=== PATIENT | male | born 1960 | race American Indian/Alaskan Native ===

== ENCOUNTER 2021-05-03 17:02 | Emergency (ER) | payer MEDICARE ==
[2021-05-03] MEDS ORDERED: oxyCODONE /ACETAMINOPHEN 5-325MG TAB PO ONE (19:04)
[2021-05-03] MEDS ORDERED: IBUPROFEN 800 MG TAB PO STA (19:08)
--- NOTE | 2021-05-03 19:08 | Emergency Department Report ---
ED General Adult HPI - General Chief complaint: Extremity Injury, Lower Stated complaint: RT ANKLE INJURY Time Seen by Provider: 05/03/21 18:38 Source: patient Mode of arrival: Ambulatory Limitations: No Limitations - History of Present Illness Initial comments: 60-year-old -Irish male patient presents with complaints of right ankle pain and swelling x3 days. Patient states he stepped into a hole and twisted his ankle. He rates his pain as a 9/10 in severity. Patient states he has difficulty walking on the foot and ankle due to the pain. He denies any loss of sensation. Past medical history includes hypertension - Related Data Previous Rx's Medication Instructions Recorded Last Taken Type Acetaminophen/Codeine [Tylenol 1 tab PO Q6H PRN #15 tab 05/03/21 Unknown Rx /Codeine # 3 tab] Naproxen [Naprosyn TAB] 500 mg PO BID PRN #20 tablet 05/03/21 Unknown Rx Allergies Allergy/AdvReac Type Severity Reaction Status Date / Time No Known Allergies Allergy Verified 05/03/21 17:51 ED Review of Systems ROS: Stated complaint: RT ANKLE INJURY Other details as noted in HPI Constitutional: denies: chills, fever, malaise Musculoskeletal: joint swelling, arthralgia Neurological: abnormal gait. denies: numbness, paresthesias Hematological/Lymphatic: denies: easy bleeding ED Past Medical Hx - Past Medical History Hx Hypertension: Yes - Medications Home Medications: Home Medications Medication Instructions Recorded Confirmed Last Taken Type Acetaminophen/Codeine [Tylenol 1 tab PO Q6H PRN #15 tab 05/03/21 Unknown Rx /Codeine # 3 tab] Naproxen [Naprosyn TAB] 500 mg PO BID PRN #20 tablet 05/03/21 Unknown Rx ED Physical Exam - General Limitations: No Limitations ED Course Vital Signs 05/03/21 05/03/21 05/03/21 17:52 17:53 19:15 Temperature 97.9 F Pulse Rate 89 Respiratory 18 14 Rate Blood Pressure 180/113 05/03/21 19:16 Temperature Pulse Rate Respiratory 16 Rate Blood Pressure ED Medical Decision Making - Radiology Data Radiology results: report reviewed XR ankle 3+V RT INDICATION: fall. Right ankle pain after stepping in a hole several days ago. COMPARISON: No relevant prior imaging study available. FINDINGS: There is a minimally displaced oblique distal fibular fracture just above the level of the ankle mortise. No additional fractures are seen. There is diffuse soft tissue swelling about the ankle, greatest laterally. On the lateral view, there is a linear metallic density projecting over the plantar soft tissues at the level of the cuboid measuring 9 mm. This portion of the foot is not included on the additional views. IMPRESSION: 1. Minimally displaced oblique distal fibular fracture with associated soft tissue swelling. 2. Linear 9 mm metallic density projecting over the plantar soft tissues on the lateral view could be outside the patient, foreign body could have this appearance. - Medical Decision Making 60-year-old -Irish male patient presents with complaints of right ankle pain and swelling x3 days. Patient states he stepped into a hole and twisted his ankle. He rates his pain as a 9/10 in severity. Patient states he has difficulty walking on the foot and ankle due to the pain. He denies any loss of sensation. Past medical history includes hypertension [place] splint placed-pt tolerated procedure well and has normal perfusion and toe sensation post application. Pt to follow up with ortho within 3 days. Discussed non weight bearing, rice method, and signs and symptoms that should prompt immediate return to the ED with pt who verbalizes understanding. Critical care attestation.: If time is entered above; I have spent that time in minutes in the direct care of this critically ill patient, excluding procedure time. ED Disposition Clinical Impression: Fracture of distal fibula Disposition: 01 HOME / SELF CARE / HOMELESS Is pt being admited?: No Condition: Stable Instructions: Tibial and Fibular Fractures, Cast or Splint Care, Adult Prescriptions: Naproxen [Naprosyn TAB] 500 mg PO BID PRN #20 tablet PRN Reason: Pain, Moderate (4-6) Acetaminophen/Codeine [Tylenol /Codeine # 3 tab] 1 tab PO Q6H PRN #15 tab PRN Reason: Pain , Severe (7-10) Referrals: [facility] [Provider Group] - 2-3 Days MARICARMEN MOURA MD [Staff Physician] - 2-3 Days
--- NOTE | 2021-05-03 19:13 | XRay Report ---
XR ankle 3+V RT INDICATION: fall. Right ankle pain after stepping in a hole several days ago. COMPARISON: No relevant prior imaging study available. FINDINGS: There is a minimally displaced oblique distal fibular fracture just above the level of the ankle mort ise. No additional fractures are seen. There is diffuse soft tissue swelling about the ankle, greatest laterally. On the lateral view, there is a linear metallic density projecting over the plantar soft tissues at the level of the cuboid sofia suring 9 mm. This portion of the foot is not included on the additional views. IMPRESSION: 1. Minimally displaced oblique distal fibular fracture with associated soft tissue swelling. 2. Linear 9 mm metallic density projecting over the plantar soft tissues on the lateral view could be outside the patient, foreign body could have this appearance. Signer Name: Jesus Hurd MD Signed: 05/03/2021 7:08 PM Workstation Name: [id number]
[2021-05-03 22:15] VITALS: BP 184/96
== END 2021-05-03 22:15 | disposition home or self-care (01) ==
LOC: ED 17:02
DX: S82.401A Unspecified fracture of shaft of right fibula, initial encounter for closed fracture (principal); X58.XXXA Exposure to other specified factors, initial encounter; Y93.89 Activity, other specified; Y92.89 Other specified places as the place of occurrence of the external cause; Y99.8 Other external cause status
CPT/HCPCS: 99283